=== PATIENT | male | born 2000 | race Asian ===

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

== ENCOUNTER 2019-07-08 16:11 | Emergency (ER) | payer OTHER ==
[~2019-07-08] VITALS: Ht 177.8 cm; Wt 67.3 kg
[2019-07-08 16:20] VITALS: BP 125/65
--- NOTE | 2019-07-08 16:49 | PHYS DOC ---
Past History Past Medical History: No Pertinent History Past Surgical History: No Surgical History Alcohol Use: None Drug Use: None General Adult EDM: Chief Complaint: FOOT INJURY PAIN HPI: HPI: 18 old male presents with concern for foreign body in his left foot. Patient states that he thinks he stepped on a small piece of glass 2 days ago. His parents had dropped a glass and cleaned it up, but there was a couple small pieces left on the floor. It did not bleed, but there was a small impact area. The patient still has pain when he walks a certain way and wonders if he has a retained foreign body. He denies any other injuries or complaints. Review of Systems: Review of Systems: Constitutional: Denies fever or chills Eyes: Denies change in visual acuity HENT: Denies nasal congestion or sore throat Respiratory: Denies cough or shortness of breath Cardiovascular: Denies chest pain or edema GI: Denies abdominal pain, nausea, vomiting, bloody stools or diarrhea : Denies dysuria Musculoskeletal: Denies back pain or joint pain Integument: Foreign body left foot Neurologic: Denies headache, focal weakness or sensory changes Endocrine: Denies polyuria or polydipsia Lymphatic: Denies swollen glands Psychiatric: Denies depression or anxiety Heart Score: Risk Factors: Risk Factors: DM, Current or recent (<one month) smoker, HTN, HLP, family history of CAD, obesity. Risk Scores: Score 0 - 3: 2.5% MACE over next 6 weeks - Discharge Home Score 4 - 6: 20.3% MACE over next 6 weeks - Admit for Clinical Observation Score 7 - 10: 72.7% MACE over next 6 weeks - Early Invasive Strategies Allergies: Allergies: Allergies Coded Allergies Type Severity Reaction Last Updated Verified No Known Drug Allergies 10/14/17 No Physical Exam: PE: Constitutional: Well developed, well nourished, no acute distress, non-toxic appearance. [] HENT: Normocephalic, atraumatic, bilateral external ears normal, oropharynx moist, no oral exudates, nose normal. [] Eyes: PERRLA, EOMI, conjunctiva normal, no discharge. [] Neck: Normal range of motion, no tenderness, supple, no stridor. [] Cardiovascular:Heart rate regular rhythm, no murmur [] Lungs & Thorax: Bilateral breath sounds clear to auscultation [] Abdomen: Bowel sounds normal, soft, no tenderness, no masses, no pulsatile masses. [] Skin: 1 mm area on the plantar aspect of the left foot near the heel, no obvious foreign body. [] Back: No tenderness, no CVA tenderness. [] Extremities: No tenderness, no cyanosis, no clubbing, ROM intact, no edema. [] Neurologic: Alert and oriented X 3, normal motor function, normal sensory function, no focal deficits noted. [] Psychologic: Affect normal, judgement normal, mood normal. [] Current Patient Data: Vital Signs: Vital Signs Date Time Temp Pulse Resp B/P (MAP) Pulse Ox O2 Delivery O2 Flow Rate FiO2 07/08/19 16:20 98.1 89 20 125/65 (85) 100 Room Air EKG: EKG: [] Radiology/Procedures: Radiology/Procedures: [] Course & Med Decision Making: Course & Med Decision Making Pertinent Labs and Imaging studies reviewed. (See chart for details) I could not see a foreign body. Even under magnification, I do not see anything. The initial wound size is very small. If there is a small fragment it is tiny and superficial. I was unable to find anything to remove. If it is there will work its way out. The patient is stable for discharge at this time. [] [place] Disclaimer: Walt Disclaimer: This electronic medical record was generated, in whole or in part, using a voice recognition dictation system. Departure Departure: Impression: Primary Impression: Foreign body in left foot Qualified Codes: S90.852A - Superficial foreign body, left foot, initial en counter Disposition: 01 HOME, SELF-CARE Condition: STABLE Referrals: APRIL MI (PCP) Patient Instructions: Foreign Body-Brief Additional Instructions: You can pad the area around the wound with moleskin to take pressure off that area of skin. If there is a foreign body there, it will work its way out over the next several days. HERMELINDO ALCANTARA DO July 08, 2019 16:49
== END 2019-07-08 17:00 | disposition home or self-care (01) ==
LOC: ER 16:11
DX: S90.852A Superficial foreign body, left foot, initial encounter (principal); W45.8XXA Other foreign body or object entering through skin, initial encounter; Y93.89 Activity, other specified; Y92.89 Other specified places as the place of occurrence of the external cause; Y99.8 Other external cause status
CPT/HCPCS: 99281